=== PATIENT | female | born 1995 | race Caucasian/White ===

== ENCOUNTER → 2018-06-11 16:37 | Outpatient (CLI) | payer OTHER, MEDICAID, SELFPAY ==
[2018-06-12 12:47] LABS: Strep Grp B PCR NEG for Grp B Strep
== END ==
DX: Z34.03 Encounter for supervision of normal first pregnancy, third trimester (principal); Z3A.35 35 weeks gestation of pregnancy
CPT/HCPCS: 87653

== ENCOUNTER → 2020-07-10 08:05 | Outpatient (CLI) | payer OTHER, MEDICAID, SELFPAY ==
[2020-07-10] MEDS: COVID-19 VACC, Ad26(JANSSEN)/PF 0.5 ML IM (08:10)
== END ==
PROVIDERS: Visit Provider Internal Medicine
DX: Z23 Encounter for immunization (principal)
CPT/HCPCS: 0031A; 91303